=== PATIENT | female | born 1955 | race Hispanic/Latino ===

== ENCOUNTER 2018-02-02 16:38 | Emergency (ER) | payer BC ==
[~2018-02-02] VITALS: Ht 165.1 cm; Wt 70.8 kg
[2018-02-02] MEDS ORDERED: ACETAMINOPHEN 325 MG TAB PO ONE (17:15)
[2018-02-02 20:20] VITALS: BP 135/85
== END 2018-02-02 18:05 | disposition home or self-care (01) ==
LOC: FSED 16:38
DX: S92.512A Displaced fracture of proximal phalanx of left lesser toe(s), initial encounter for closed fracture (principal); W22.09XA Striking against other stationary object, initial encounter; Y92.008 Other place in unspecified non-institutional (private) residence as the place of occurrence of the external cause
CPT/HCPCS: 99283

== ENCOUNTER → 2019-01-05 | Outpatient (CLI) | payer BC ==
--- NOTE | 2019-01-05 11:33 | Diagnostic Imaging Report ---
TECHNIQUE: Magnetic resonance imaging of the RIGHT KNEE was performed WITHOUT injected contrast. HISTORY: Pain, no history of surgery, query: Peripheral tear of lateral meniscus, peripheral tear of medial meniscus COMPARISON: None available. FINDINGS: LIGAMENTS AND TENDONS: ACL: Intact PCL: Intact Collateral ligaments: Intact Iliotibial band: Unremarkable Popliteal tendon: Intact Extensor mechanism: Intact JOINT: Menisci: Medial: Complex tearing and attenuation of the posterior horn, results in peripheral extrusion of the body. Lateral: Intact Articular Cartilage: Medial Compartment: Intermediate to high-grade erosions of the weightbearing cartilage. Lateral Compartment: No focal defect. Patellofemoral Compartment: Intermediate grade erosion at the medial patellar facet. Joint Fluid: Reactive synovitis and a small nonspecific joint effusion. BONES: No focal or infiltrative bone marrow replacing abnormality. No acute fracture. SOFT TISSUES: Otherwise, unremarkable. IMPRESSION: 1. Medial and patellofemoral compartment degenerative changes, including degenerative tearing of the posterior horn of the medial meniscus. 2. Reactive synovitis with associated small nonspecific joint effusion. Signed by: Dr. Steven Howard D.O., M.M.M. on 01/05/2019 11:30 AM
== END ==
LOC: MRI 10:00
PROVIDERS: ATTEND Specialist
DX: S83.261A Peripheral tear of lateral meniscus, current injury, right knee, initial encounter (principal); S83.221A Peripheral tear of medial meniscus, current injury, right knee, initial encounter

== ENCOUNTER → 2019-06-01 | Day surgery (SDC) | payer BC ==
[~2019-06-01] MED LIST: ACETAMINOPHEN 1000 MG/100 ML IV ONE; ACETAMINOPHEN/CODEINE 300MG - 30MG TAB ONE; BUPIVACAINE 0.5%/EPI 30 ML SDV INJ ONE; CALCIUM PO; CEFAZOLIN SOD 1 GM/NS 50ML 100 ML IV ONE; EPHEDRINE SULFATE INJ 50 MG/10 ML SYR ONE; FENTANYL CITRATE/PF 100MCG/2 ML INJ ONE; KETOROLAC TROMETHAMINE 30 MG/ML VIAL ONE; LIDOCAINE HCL 2% LOCAL INJ 5 ML SDV VIAL INJ ONE; MIDAZOLAM HCL 2 MG/2 ML VIAL ONE; NAPROXEN250 MG PO; OMEPRAZOLE40 MG PO; ONDANSETRON HCL INJ 2MG/ML 2ML 2 MG/ML VIAL ONE; PROPOFOL IV EMULSION 10 MG/ML 20 ML VIAL ONE
--- OUTSIDE RECORDS SUMMARY | 2019-06-01 07:35 | XMS REPORT ---
Author Author [facility] Address Unknown Phone Unavailable Care Team Providers Care Branch Chief Name Role Phone JOHN BETANCOURT Unavailable Unavailable Anastasia CARBAJAL Unavailable Unavailable Problems This patient has no known problems. Allergies, Adverse Reactions, Alerts This patient has no known allergies or adverse reactions. Medications This patient has no known medications. Results Test Description Test Time Test Comments Text Results Atomic Results Result Comments MRI RIGHT KNEE WO 2019-01-05 11:26:00 [place] [address] Patient Name: ALF DOE MR #: [id number] : 1955 Age/Sex: 63/F Req #: [id number] Adm Physician: Ordered by: JOHN BETANCOURT MD Report #: [id number] Location: MRI Room/Bed: Procedure: [id number] MRI/MRI RIGHT KNEE WO Exam Date: 01/05/19 Exam Time: 1030 REPORT STATUS: Signed TECHNIQUE: Magnetic resonance imaging of the RIGHT KNEE was performed WITHOUT injected contrast. HISTORY: Pain, no history of surgery, query: Peripheral tear of lateral meniscus, peripheral tear of medial meniscus COMPARISON: None available. FINDINGS: LIGAMENTS AND TENDONS: ACL: Intact PCL: Intact Collateral ligaments: Intact Iliotibial band: Unremarkable Popliteal tendon: Intact Extensor mechanism: Intact RAMSES NT: Menisci: Medial: Complex tearing and attenuation of the posterior horn, results in peripheral extrusion of the body. Lateral: Intact Articular Cartilage: Medial Compartment: Intermediate to high-grade erosions of the weightbearing cartilage. Lateral Compartment: No focal defect. Patellofemoral Compartment: Intermediate grade erosion at the medial patellar facet. Joint Fluid: Reactive synovitis and a small nonspecific joint effusion. BONES: No focal or infiltrative bone marrow replacing abnormality. No acute fracture. SOFT TISSUES: Otherwise, unremarkable. IMPRESSION: 1. Medial and patellofemoral compartment degenerative changes, including degenerative tearing of the posterior horn of the medial meniscus. 2. Reactive synovitis with associated small nonspecific joint effusion. Signed by: Dr. Richard Howard D.O., M.M.M. on 01/05/2019 11:30 AM Dictated By: RICHARD HOWARD DO 1130 Transcribed By: JUANY on 01/05/19 1130 COPY TO: JOHN BETANCOURT MD CT LUMBAR SPINE WITHOUT-HOPD 2018-07-12 17:43:00 [place] [address] Patient Name: ALF DOE MR #: [id number] : 1955 Age/Sex: 63/F Req #: [id number] Adm Physician: Ordered by: ASHTYN CARBAJAL MD Report #: [id number] Location: [facility] Room/Bed: Procedure: [id number] HOPD/CT LUMBAR SPINE WITHOUT- HOPD Exam Date: 07/12/18 Exam Time: 1620 REPORT STATUS: Signed Examination: CT LUMBAR SPINE WITHOUT CONTRAST History: Right sided low back pain radiating down the right lower extremity. Comparison studies: None Technique: Axial images were obtained through the lumbar spine from L1. Coronal and sagittal reconstructions obtained from the axial data. Dose modulation, iterative reconstruction, and/or weight based adjustment of the mA/kV was utilized to reduce the radiation dose to as low as reasonably achievable. Intravenous contrast: None Findings: The usual 5 non-rib bearing lumbar vertebral bodies are present. Alignment: Normal lordosis. No scoliosis. Soft tissues: Atherosclerotic calcification of the abdominal aorta. Paraspinal muscles: No abnormalities. Sacroiliac joints: Vaccuum phenomenon bilaterally due to degenerative changes. Vertebrae: No fractures, infection or neoplasm. Degenerative changes: L1-L2 and L2-L3: No abnormalities. L3-L4: Mild diffuse disc bulge. No foraminal or canal stenosis. L4-L5: Mild diffuse disc bulge and moderate bilateral facet arthropathy result in mild canal stenosis. No foraminal stenosis. L5-S1: Asymmetric to the left disc bulge results in mild right and severe left neural foraminal narrowing. No canal stenosis. IMPRESSION: Mild degenerative changes from L3-L4 through L5-S1 with severe left foraminal narrowing at L5-S1 and impingement of the exiting left L5 nerve root and mild canal stenosis at L4-L5. Signed by: Dr. Denisha Schulz M.D. on 07/12/2018 5:50 PM Dictated By: DENISHA PATEL MD 49 Transcribed By: JUANY on 07/12/181749 COPY TO: ASHTYN CARBAJAL MD
[2019-06-01 11:40] VITALS: BP 111/82
--- NOTE | 2019-06-02 20:50 | Operative Report ---
DATE OF PROCEDURE: 06/01/2019 SURGEON: Riki Sanchez MD PREOPERATIVE DIAGNOSES: degenerative joint disease of the knee. POSTOPERATIVE DIAGNOSES: . OPERATION/PROCEDURE PERFORMED: The patient underwent right knee examination under anesthesia, right knee arthroscopy, right knee partial medial meniscectomy, right knee chondroplasty of the patella, the trochlea, the medial femoral condyle, the medial tibial plateau, the lateral femoral condyle, and the lateral tibial plateau. The patient also underwent removal of multiple intra-articular loose bodies. 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 ANESTHESIA: General endotracheal intubation anesthesia. IV FLUIDS: Per anesthesia record. BRIEF DESCRIPTION OF THE PATIENT'S OPERATIVE PROCEDURE: Ms. Butt was taken to the operating room, placed in supine position on the operating room table. Following induction of general anesthesia as well as endotracheal intubation, the patient's right lower extremity was examined under anesthesia. She was found to have a mild effusion within the knee joint, but otherwise ligamentously stable knee. The patient's lower extremity was prepped and draped in standard surgical fashion. A two-port technique used to provide this patient arthroscopic evaluation of the knee joint. Examination of suprapatellar pouch and medial lateral gutters demonstrated no evidence of loose bodies. There was however evidence of chondromalacia of patella and trochlear surfaces. The scope was advanced to medial compartment. Examination of the medial compartment demonstrated a torn posterior horn and root of the medial meniscus. There were also multiple intra-articular loose bodies in the medial compartment. A shaver was placed in the knee joint and the loose bodies were removed. A biting forceps was placed within the knee and a partial medial meniscectomy was performed. Chondroplasties of the medial femoral condyle and medial tibial plateau were also performed at this time. Scope was then advanced into the intercondylar notch and the anterior cruciate ligament was identified and found to be intact. Scope was advanced to lateral compartment and an additional intra-articular loose body was identified. This was again removed using a shaver. 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 Chondroplasties of each of these surfaces were performed at this time. The scope was advanced to the suprapatellar pouch and chondroplasties of the patella and trochlea were performed. The knee was deflated with sterile normal saline. The portal sites were closed using 4-0 nylon suture. The portal sites as well as the knee joint was then injected with 0.5% Marcaine with epinephrine. Sterile dressings were applied. The patient was awakened and taken to postanesthesia care unit in stable condition. MD CRIS Vallejo/YESSICA /[id number]
== END | disposition home or self-care (01) ==
LOC: OR 07:25
PROVIDERS: ATTEND Specialist
DX: S83.241A Other tear of medial meniscus, current injury, right knee, initial encounter (principal); M17.11 Unilateral primary osteoarthritis, right knee; M22.41 Chondromalacia patellae, right knee; M23.41 Loose body in knee, right knee; G47.33 Obstructive sleep apnea (adult) (pediatric); K21.9 Gastro-esophageal reflux disease without esophagitis; N28.1 Cyst of kidney, acquired; F17.210 Nicotine dependence, cigarettes, uncomplicated; X58.XXXA Exposure to other specified factors, initial encounter; Z01.810 Encounter for preprocedural cardiovascular examination
CPT/HCPCS: 29881; 93005; J0131; J0690; J1885; J2001; J2250; J2405; J2704; J3010

== ENCOUNTER 2019-06-22 13:47 | Outpatient (RCR) | payer BC ==
[~2019-06-22 13:47] MED LIST changes: -ACETAMINOPHEN 1000 MG/100 ML IV ONE; -ACETAMINOPHEN/CODEINE 300MG - 30MG TAB ONE; -BUPIVACAINE 0.5%/EPI 30 ML SDV INJ ONE; -CEFAZOLIN SOD 1 GM/NS 50ML 100 ML IV ONE; -EPHEDRINE SULFATE INJ 50 MG/10 ML SYR ONE; -FENTANYL CITRATE/PF 100MCG/2 ML INJ ONE; -KETOROLAC TROMETHAMINE 30 MG/ML VIAL ONE; -LIDOCAINE HCL 2% LOCAL INJ 5 ML SDV VIAL INJ ONE; -MIDAZOLAM HCL 2 MG/2 ML VIAL ONE; -ONDANSETRON HCL INJ 2MG/ML 2ML 2 MG/ML VIAL ONE; -PROPOFOL IV EMULSION 10 MG/ML 20 ML VIAL ONE
== END 2019-07-09 ==
LOC: PT 13:47
PROVIDERS: ATTEND Specialist
DX: M17.11 Unilateral primary osteoarthritis, right knee (principal)

== ENCOUNTER 2023-03-31 13:59 | Outpatient (RCR) | payer BC, MEDICARE | END 2023-04-08 | LOC: PT 13:59 | PROVIDERS: ATTEND Specialist | DX: M17.12 Unilateral primary osteoarthritis, left knee (principal) ==

== ENCOUNTER 2023-04-09 07:16 | Outpatient (RCR) | payer MEDICARE | END 2023-05-08 | LOC: PT 07:16 | PROVIDERS: ATTEND Specialist | DX: M17.12 Unilateral primary osteoarthritis, left knee (principal) ==

== ENCOUNTER 2023-11-30 06:53 | Observation (INO) | payer MEDICARE ==
[2023-11-27 10:49] LABS: BASOPHILS # (AUTO) 0.1 (0.0-0.1); BASOPHILS % 0.7 % (0.0-1.0); EOSINOPHILS # (AUTO) 0.2 (0.0-0.4); EOSINOPHILS % 2.4 % (0.0-6.0); LYMPHOCYTES # (AUTO) 4.1 (1.0-3.2); LYMPHOCYTES % 46.7 % (18.0-39.1); MEAN CORPUSCULAR HEMOGLOBIN 33.2 pg (28-32); MEAN CORPUSCULAR HGB CONC 32.6 g/dL (31-35); MEAN CORPUSCULAR VOLUME 101.9 fL (81-99); MONOCYTES # (AUTO) 0.7 (0.2-0.8); MONOCYTES % 7.4 % (4.4-11.3); NEUTROPHILS # (AUTO) 3.7 (2.1-6.9); NEUTROPHILS % 42.7 % (38.7-80.0); PLATELET COUNT 158 x10e3/uL (140-360); RED BLOOD COUNT 4.22 x10e6/uL (3.6-5.1); RED CELL DISTRIBUTION WIDTH 13.2 % (11.7-14.4); WHITE BLOOD COUNT 8.73 x10e3/uL (4.8-10.8)
[2023-11-27 11:30] LABS: ANION GAP 11.4 mmol/L (8-16); CALCIUM 9.1 mg/dL (8.4-10.2); CREATININE, SERUM 0.71 mg/dL (0.57-1.11); POTASSIUM 3.4 mmol/L (3.5-5.1)
[~2023-11-30 06:53] MED LIST changes: +ATORVASTATIN CA10 MG PO; +GLIMEPIRIDE2 MG PO; +JARDIANCE10 MG; +LEVETIRACETAM1000 MG PO; +LEVOTHYROXINE50 MCG PO; +NAMENDA10 MG PO; +SODIUM CHLORIDE 0.9% 500ML 500 ML ONE; +TRANEXAMIC ACID 20 ML ONE; +VENLAFAXINE HCL75 MG PO; +Vancomycin IV 500 MG ONE
[2023-11-30] MEDS ORDERED: ACETAMINOPHEN 1000 MG/100 ML 100 ML IV ONE (06:56)
[2023-11-30] MEDS ORDERED: Vancomycin IV 500 MG ONE (07:00)
[2023-11-30] MEDS ORDERED: CELECOXIB 200 MG CAP ONE (07:09)
[2023-11-30] MEDS ORDERED: DEXAMETHASONE SOD PHOS 10 MG/1 ML VIAL ONE (07:09)
[2023-11-30] MEDS ORDERED: GABAPENTIN 300 MG CAP ONE (07:09)
[2023-11-30] MEDS ORDERED: LACTATED RINGER'S 1,000 ML ONE (07:10)
[2023-11-30] MEDS ORDERED: CEFAZOLIN SODIUM 2 GM ONE (07:10)
[2023-11-30] MEDS ORDERED: ROPIVACAINE 246.25 MG, EPINEPHRINE HCL 1:1000 1ML 0.5 MG, CLONIDINE HCL 0.08 MG, KETORO... INJ ONE ×5 (08:00)
[2023-11-30] MEDS ORDERED: ALBUTEROL 90 MCG/ACT INHALER INH ONE (08:19)
[2023-11-30] MEDS ORDERED: SODIUM CHLORIDE 0.9% 1000ML 1,000 ML IV SCH (09:45)
[2023-11-30] MEDS ORDERED: HYDROCODONE/APAP 7.5MG-325MG 1 EA TAB PO PRN (09:45)
[2023-11-30] MEDS ORDERED: DOCUSATE SODIUM 100 MG CAP PO PRN (09:45)
[2023-11-30] MEDS ORDERED: DIPHENHYDRAMINE HCL INJ 50 MG/ML VIAL IV PRN (09:45)
[2023-11-30] MEDS ORDERED: ONDANSETRON HCL INJ 2MG/ML 2ML 2 MG/ML VIAL IV PRN (09:45)
[2023-11-30] MEDS ORDERED: HYDROCODONE/APAP 5MG-325MG TAB PO PRN (09:45)
[2023-11-30 09:47] VITALS: TEMP 97.1
[2023-11-30] MEDS ORDERED: HYDROCODONE/APAP 7.5MG-325MG 1 EA TAB PO ONE (11:30)
[2023-11-30] MEDS ORDERED: HYDROCODONE/APAP 7.5MG-325MG 1 EA TAB ONE (11:31)
[2023-11-30] MEDS ORDERED: ONDANSETRON HCL INJ 2MG/ML 2ML 2 MG/ML VIAL ONE (13:15)
[2023-11-30] MEDS ORDERED: LIDOCAINE HCL 2% LOCAL INJ 5 ML SDV VIAL INJ ONE (13:15)
[2023-11-30] MEDS ORDERED: METOPROLOL TARTRATE INJ 1 MG/ML VIAL ONE (13:15)
[2023-11-30] MEDS ORDERED: PROPOFOL IV EMULSION 10 MG/ML 20 ML VIAL ONE (13:15)
[2023-11-30] MEDS ORDERED: KETOROLAC TROMETHAMINE 30 MG/ML VIAL ONE (13:15)
[2023-11-30] MEDS ORDERED: SEVOFLURANE INHAL SOLN 250 ML PEN BTL ONE (13:15)
[2023-11-30] MEDS ORDERED: DEXAMETHASONE SOD PHOS INJ 4 MG/ML SDV ONE (13:15)
[2023-11-30] MEDS ORDERED: EPINEPHRINE HCL 1:1000 1ML 1 MG/ML AMP ONE (13:21)
[2023-11-30] MEDS ORDERED: ROPIVACAINE 0.5% 5 MG/ML 30 ML SDV ONE (13:21)
[2023-11-30] MEDS ORDERED: FENTANYL CITRATE/PF 100MCG/2 ML INJ ONE ×2 (13:27→13:28)
[2023-11-30] MEDS ORDERED: MIDAZOLAM HCL 2 MG/2 ML VIAL ONE (13:27)
[2023-11-30 13:50] VITALS: BP 138/82; PULSE 88; RESP 15; O2SAT 96
[2023-11-30] MEDS ORDERED: ASPIRIN81 MG PO (14:00)
[2023-11-30] MEDS ORDERED: CELECOXIB 100 MG CAP PO SCH (17:00)
[2023-11-30] MEDS ORDERED: ASPIRIN 325 MG TAB PO SCH (17:00)
[2023-12-01] MEDS ORDERED: ACETAMINOPHEN 1000 MG/100 ML IV PRN (09:45)
== END 2023-11-30 14:30 | disposition home health service (06) ==
LOC: OR 06:53 → PACU V 09:36
PROVIDERS: ADMIT Specialist; ATTEND Specialist
DX: M17.12 Unilateral primary osteoarthritis, left knee (principal); E78.5 Hyperlipidemia, unspecified; E11.9 Type 2 diabetes mellitus without complications; Z79.84 Long term (current) use of oral hypoglycemic drugs; E03.9 Hypothyroidism, unspecified; K21.9 Gastro-esophageal reflux disease without esophagitis; F03.90 Unspecified dementia, unspecified severity, without behavioral disturbance, psychotic disturbance, mood disturbance, and anxiety; E66.9 Obesity, unspecified; Z68.29 Body mass index [BMI] 29.0-29.9, adult; Z71.82 Exercise counseling; F32.A Depression, unspecified; F17.210 Nicotine dependence, cigarettes, uncomplicated; Z01.812 Encounter for preprocedural laboratory examination; Z01.818 Encounter for other preprocedural examination; Z79.82 Long term (current) use of aspirin; Z79.899 Other long term (current) drug therapy
CPT/HCPCS: 27447; 36415 ×2; 71046; 73560; 80048; 82948; 85025; 86850; 86900; 97116 ×2; 97161; 97530; C1713 ×2; C1776 ×4; G0378; J0131; J0171; J1100 ×2; J1885; J2001; J2250; J2405; J2704; J2795; J3010; J3370; J7040; J7121

== ENCOUNTER 2024-02-08 11:57 | Outpatient (RCR) | payer MEDICARE ==
[~2024-02-08 11:57] MED LIST changes: +ASPIRIN81 MG PO; -SODIUM CHLORIDE 0.9% 500ML 500 ML ONE; -TRANEXAMIC ACID 20 ML ONE; -Vancomycin IV 500 MG ONE
== END 2024-03-08 ==
LOC: PT 11:57
PROVIDERS: ATTEND Specialist
DX: Z47.1 Aftercare following joint replacement surgery (principal); Z96.652 Presence of left artificial knee joint